=== PATIENT | male | born 1935 | race Caucasian/White ===

== ENCOUNTER 2022-11-12 10:29 | Day surgery (SDC) | payer MEDICARE, OTHER ==
[~2022-11-12] VITALS: Ht 175.3 cm; Wt 61.9 kg
[~2022-11-12 10:29] MED LIST: ATARAX 10MG10 MG/TAB PO; BUSPAR5 MG PO; FLOMAX 0.40.4 MG/CAP PO; IMODIUM 2MG CAPS2 MG PO; IMURAN 50MG TAB50 MG PO; NEXIUM 20MG20 MG PO
[2022-11-12 11:36] VITALS: BP 118/72; PULSE 102; TEMP 97.3
[2022-11-12] MEDS ORDERED: ALKA-SELTZER HE1 TEF PO (11:42)
[2022-11-12] MEDS ORDERED: BENEFIBER (11:43)
[2022-11-12] MEDS ORDERED: MINIPRESS 1M1 MG/CAP PO (11:44)
[2022-11-12] MEDS ORDERED: PHENYLEPHRINE H10 MG PO (11:44)
[2022-11-12] MEDS ORDERED: GAS AID MAXIMU125 MG PO (11:45)
[2022-11-12 12:44] VITALS: BP 112/50; PULSE 80; TEMP 98
[2022-11-12] MEDS ORDERED: NORCO 325 MG-51 TAB PO (12:56)
[2022-11-12 13:00] VITALS: BP 116/61; PULSE 82
[2022-11-12 13:15] VITALS: BP 118/63; PULSE 79
[2022-11-12 13:30] VITALS: BP 119/62; PULSE 78
--- NOTE | 2022-11-12 16:05 | NUR ---
[id number]: PT TO RECOVERY BAY 7 FROM OR S/P PORTACATH PLACEMENT 2 INCISION SITES ON L CHEST DRSG CDI SLEEPY, PLACED ON MONITOR, VSS ON 6L O2 RECEIVED REPORT AND ASSUMED CARE OF PT FROM [facility] AND [facility] FAMILY AT BEDSIDE PT AWOKE AND PLACED ON RA, VSS ON SAME. PROVIDED FOOD/FLUIDS, TOLERATING WELL WALKED TO BR AND INDEPENDENTLY RETURNED - STEADY GAIT PT HAS REMAINED A&O, NAD, VSS ON RA, TOLERATING PO, IS WITHOUT SIGNIFICANT COMPLAINT, WITH STEADY GAIT THRU OUT STAY IV D/C'D. D/C INSTRUCTIONS, ANY FOLLOW UP REVIEWED AND HANDED TO PT. ALL QUESTIONS AND CONCERNS ADDRESSED TO PT SATISFACTION. TAKEN TO EXIT VIA W/C WITH ALL BELONGINGS AND PAPERWORK IN HAND, ASSISTED INTO PASSENGER SEAT OF POV. [facility] NURSE CALLED WITH REPORT. SNF TRANSPORT TO DRIVE HOME.
== END 2022-11-12 13:55 | disposition home or self-care (01) ==
LOC: SDCO 10:29
DX: C20 Malignant neoplasm of rectum (principal); C61 Malignant neoplasm of prostate; K51.90 Ulcerative colitis, unspecified, without complications
CPT/HCPCS: C1788; J0690; J1644; J2704; J7120